=== PATIENT | male | born 1965 | race African-American/Black ===

== ENCOUNTER 2024-04-29 12:08 | Emergency (ER) | payer MEDICAID ==
[~2024-04-29] VITALS: Ht 180.3 cm; Wt 118.0 kg
[2024-04-29 12:11] VITALS: O2SAT 98
[2024-04-29] MEDS: KETOROLAC 30MG/ML VIAL IV STA (12:38)
[2024-04-29] MEDS: SODIUM CHLORIDE 0.9% 1,000 ML IV ONE (12:40)
[2024-04-29] MEDS: HYDROMORPHONE HCL/PF 2MG/ML CPJ IV ONE (12:44)
[2024-04-29 12:52] LABS: BASOPHILS % 0.5 % (0.0-2.0); EOSINOPHILS % 0.6 % (0.0-5.0); HEMATOCRIT. 40.2 % (42.0-52.0); LYMPHOCYTES % 20.9 % (20.0-50.0); MEAN CORPUSCULAR HGB CONC 34.8 g/dL (31.0-37.0); MEAN CORPUSCULAR VOLUME 80.6 fL (80.0-94.0); MEAN PLATELET VOLUME 6.7 fl (7.4-10.4); MONOCYTES % 6.3 % (2.0-8.0); NEUTROPHILS % 71.7 % (40.0-76.0); PLATELET 549 x1000/uL (130-400); RED BLOOD CELL COUNT 4.99 mill/uL (4.7-6.1); RED CELL DISTRIBUTION WIDTH 13.2 % (11.6-14.6); WHITE BLOOD COUNT 9.8 x1000/uL (4.5-11.0)
[2024-04-29 12:54] LABS: CHLORIDE 104 mEq/L (98-107); POTASSIUM 3.9 mEq/L (3.5-5.1); SODIUM 139 mEq/L (136-145)
[2024-04-29 12:55] LABS: CARBON DIOXIDE 29 mEq/L (21-32)
[2024-04-29 12:56] LABS: CALCIUM 9.1 mg/dL (8.7-10.4)
[2024-04-29 13:00] LABS: GLUCOSE 136 mg/dL (70-105)
[2024-04-29 13:01] LABS: UREA NITROGEN BLOOD 10 mg/dL (9-23)
[2024-04-29 13:15] LABS: ETHANOL BLOOD < 10 mg/dL (<10)
[2024-04-29 13:20] LABS: INR 0.9; PROTHROMBIN TIME 10.6 sec (9.6-11.0)
[2024-04-29 16:52] VITALS: BP 132/80; PULSE 88; RESP 30; TEMP 98.2
[2024-04-29 18:30] LABS: CLARITY URINE CLEAR (CLEAR); COLOR URINE DARK YELLOW (YELLOW); GLUCOSE URINE NEGATIVE (NEGATIVE); KETONES URINE TRACE (NEGATIVE); LEUKOCYTE ESTERASE URINE TRACE (NEGATIVE); NITRITE URINE NEGATIVE (NEGATIVE); OCCULT BLOOD URINE NEGATIVE (NEGATIVE); PH URINE 5.5 (4.5-8.0); PROTEIN URINE 1+ (NEGATIVE); SPECIFIC GRAVITY URINE 1.023 (1.005-1.030)
[2024-04-29 18:42] LABS: *AMPHETAMINES SCREEN URINE NEGATIVE (NEGATIVE)
[2024-04-29 18:43] LABS: *BARBITURATES SCREEN URINE NEGATIVE (NEGATIVE); *BENZODIAZEPINES SCREEN URINE NEGATIVE (NEGATIVE); *COCAINE SCREEN URINE PRESUMPTIVE POSITIVE (NEGATIVE); CANNABINOID URINE SCREEN PRESUMPTIVE POSITIVE (NEGATIVE); ECSTASY MDMA SCREEN URINE NEGATIVE (NEGATIVE); METHADONE URINE SCREEN NEGATIVE (NEGATIVE); OPIATES URINE SCREEN PRESUMPTIVE POSITIVE (NEGATIVE); PHENCYCLIDINE URINE SCREEN NEGATIVE (NEGATIVE)
[2024-04-29 19:10] LABS: BACTERIA URINE 2+; RBC URINE NONE SEEN /hpf (0-2); SQUAMOUS EPITHELIAL CELL URINE RARE /lpf (RARE/1+); WBC URINE 0-2 /hpf (0-2)
== END 2024-04-29 18:47 | disposition left against medical advice (07) ==
LOC: ER 12:19
DX: R10.9 Unspecified abdominal pain (principal)
CPT/HCPCS: 80305; 80048; 81003; 80320; 83690; 85025; 85610; 36415; 74176; 96361; 96374; 96375; 99285; J1885; J1170; J7030; Z7610 ×3; G0480

== ENCOUNTER 2024-05-02 07:26 | Inpatient (IN) | payer MEDICAID ==
[2024-05-02] VITALS (25 sets, daily range): BP systolic 141–175; BP diastolic 84–146; PULSE 99–120; RESP 15–34; TEMP 98.8–100; O2SAT 97
[~2024-05-02] VITALS: Ht 177.8 cm; Wt 124.3 kg
[2024-05-02] MEDS: ALBUTEROL (0.083%) 2.5MG/3ML NEB HHN STA (07:56)
[2024-05-02] MEDS: IPRATROPIUM BROMIDE (0.02%) 0.5MG/2.5ML NEB HHN STA (07:56)
[2024-05-02 08:09] LABS: CHLORIDE 97 mEq/L (98-107); POTASSIUM 4.1 mEq/L (3.5-5.1); SODIUM 133 mEq/L (136-145)
[2024-05-02 08:10] LABS: CARBON DIOXIDE 26 mEq/L (21-32)
[2024-05-02 08:11] LABS: CALCIUM 8.8 mg/dL (8.7-10.4)
[2024-05-02 08:13] LABS: BG BASE EXCESS 1.9 mmol/L (-2.0-2.0); BG CARBOXYHEMOGLOBIN 0.8 % (0.5-1.5); BG DEOXYHEMOGLOBIN 13.8 % (0.0-5.0); BG FRACTION INSPIRED OXYGEN 36; BG HCO3 ACT 26.3 mmol/L (22.0-26.0); BG METHEMOGLOBIN 0.5 % (0.0-1.5); BG OXYHEMOGLOBIN 84.9 % (94.0-97.0); BG PCO2 40.1 mmHg (35.0-45.0); BG PH 7.434 (7.350-7.450); BG PO2 50.6 mmHg (75.0-100.0); BG SAMPLE SITE RIGHT BRACHIAL; BG TOTAL HEMOGLOBIN 15.5 g/dL (12.0-18.0); BG VENT MODE NASAL CANNULA
[2024-05-02 08:14] LABS: HEMATOCRIT. 41.8 % (42.0-52.0); HEMOGLOBIN. 14.4 g/dL (14.0-18.0); MEAN CORPUSCULAR HEMOGLOBIN 27.4 pg (28.0-32.0); MEAN CORPUSCULAR HGB CONC 34.5 g/dL (31.0-37.0); MEAN CORPUSCULAR VOLUME 79.3 fL (80.0-94.0); MEAN PLATELET VOLUME 6.8 fl (7.4-10.4); PLATELET 525 x1000/uL (130-400); RED BLOOD CELL COUNT 5.27 mill/uL (4.7-6.1); RED CELL DISTRIBUTION WIDTH 13.7 % (11.6-14.6); WHITE BLOOD COUNT 32.8 x1000/uL (4.5-11.0)
[2024-05-02 08:15] LABS: CREATININE 1.3 mg/dL (0.6-1.3); GLUCOSE 132 mg/dL (70-105)
[2024-05-02 08:15] LABS: DIFFERENTIAL COMMENT 1
[2024-05-02 08:16] LABS: UREA NITROGEN BLOOD 24 mg/dL (9-23)
[2024-05-02 08:17] LABS: ALANINE AMINOTRANSFERASE 21 IU/L (10-49); ALBUMIN 4.3 g/dL (3.2-4.8); ASPARTATE AMINOTRANSFERASE 26 IU/L (<34)
[2024-05-02 08:18] LABS: BILIRUBIN DIRECT 0.6 mg/dL (<=3.0); BILIRUBIN TOTAL 1.3 mg/dL (0.1-1.0); PROTEIN TOTAL 7.2 g/dL (6.0-8.3)
[2024-05-02 08:58] LABS: TROPONIN I HIGH SENSITIVITY 85 ng/L (3.0-53)
[2024-05-02 09:16] LABS: CLARITY URINE CLOUDY (CLEAR); COLOR URINE ORANGE (YELLOW); GLUCOSE URINE NEGATIVE (NEGATIVE); KETONES URINE TRACE (NEGATIVE); LEUKOCYTE ESTERASE URINE TRACE (NEGATIVE); NITRITE URINE NEGATIVE (NEGATIVE); OCCULT BLOOD URINE 2+ (NEGATIVE); PH URINE 5.5 (4.5-8.0); PROTEIN URINE 3+ (NEGATIVE); SPECIFIC GRAVITY URINE 1.022 (1.005-1.030)
[2024-05-02 09:33] LABS: RBC URINE NONE SEEN /hpf (0-2)
[2024-05-02 09:34] LABS: BACTERIA URINE 2+; SQUAMOUS EPITHELIAL CELL URINE NONE SEEN /lpf (RARE/1+); YEAST URINE NONE SEEN
[2024-05-02 10:46] LABS: MICROCYTOSIS 1+; PLATELET ESTIMATE INCREASED
[2024-05-02] MEDS: LORAZEPAM 2MG/ML INJ IV ONE ×2 (10:59→11:49)
[2024-05-02] MEDS: IOHEXOL-350 100 ML BOTTLE ONE (11:51)
[2024-05-02] MEDS: LIDOCAINE HCL/EPINEPHRINE 1%-EPI 1:100,000 20 ML VIAL INFIL ONE (11:51)
[2024-05-02] MEDS: MORPHINE SULFATE 4 MG/ML INJ (FOR IV/IM USE) IV ONE (12:39)
[2024-05-02] MEDS: PIPERACILLIN/TAZO 3.375G/50ML 50 ML IV STA (13:13)
[2024-05-02] MEDS ORDERED: VANCOMYCIN 1,250 MG in DEXT 5% WATER 250 ML IV SCH (13:15)
[2024-05-02] MEDS ORDERED: MORPHINE SULFATE 4 MG/ML INJ (FOR IV/IM USE) IM ONE (13:30)
[2024-05-02] MEDS: MORPHINE SULFATE 4 MG/ML INJ (FOR IV/IM USE) IV NR (13:34)
[2024-05-02] MEDS: VANCOMYCIN 1.25GM PMX (XELLIA) 250 ML IV NR (15:27)
[2024-05-02] MEDS ORDERED: NALOXONE HCL 0.4MG/ML VIAL IV PRN (15:45)
[2024-05-02] MEDS: HYDROCODONE/ACETAMINOPHEN 5/325MG TABLET PO PRN (15:47)
[2024-05-02] MEDS ORDERED: DOXYCYCLINE HYCLATE 100 MG/VIAL IV SCH (16:00)
[2024-05-02] MEDS ORDERED: IPRATROPIUM BROMIDE (0.02%) 0.5MG/2.5ML NEB HHN PRN (18:30)
[2024-05-02] MEDS: METHYLPREDNISOLONE SOD SUCC 125MG/2ML (ACT-O-VIAL) IV NR (19:37)
[2024-05-02] MEDS: DOXYCYCLINE 100MG/100ML 100 ML IV SCH (19:38)
[2024-05-02] MEDS ORDERED: CEFTRIAXONE 1GM/50ML 50 ML IV SCH (21:00)
[2024-05-02 21:24] LABS: CREATINE KINASE MB FRACTION 2.8 ng/mL (0.5-3.6); LACTATE DEHYDROGENASE 184 IU/L (120-246); TROPONIN I HIGH SENSITIVITY 24 ng/L (3.0-53)
[2024-05-02 21:25] LABS: CREATINE KINASE 263 IU/L (46-171)
[2024-05-02] MEDS: MORPHINE SULFATE 2 MG/ML CPJ (NOT FOR IM USE) IV NR (21:27)
[2024-05-02] MEDS: HYDRALAZINE 20MG/ML VIAL IV PRN (21:27)
[2024-05-02] MEDS: ONDANSETRON HCL 4MG/2ML INJ IV PRN (21:27)
[2024-05-02 21:33] LABS: ETHANOL BLOOD < 10 mg/dL (<10)
[2024-05-02] MEDS: CEFTRIAXONE 1GM/50ML 50 ML IV SCH (22:11)
[2024-05-03] VITALS (86 sets, daily range): BP systolic 119–175; BP diastolic 79–141; PULSE 90–107; RESP 14–36; TEMP 98.1–99.1
[2024-05-03 00:58] LABS: CREATINE KINASE MB FRACTION 3.4 ng/mL (0.5-3.6)
[2024-05-03 01:16] LABS: *AMPHETAMINES SCREEN URINE NEGATIVE (NEGATIVE)
[2024-05-03 01:17] LABS: *BARBITURATES SCREEN URINE NEGATIVE (NEGATIVE); *BENZODIAZEPINES SCREEN URINE NEGATIVE (NEGATIVE); *COCAINE SCREEN URINE NEGATIVE (NEGATIVE); CANNABINOID URINE SCREEN PRESUMPTIVE POSITIVE (NEGATIVE); ECSTASY MDMA SCREEN URINE NEGATIVE (NEGATIVE); METHADONE URINE SCREEN NEGATIVE (NEGATIVE); OPIATES URINE SCREEN PRESUMPTIVE POSITIVE (NEGATIVE); PHENCYCLIDINE URINE SCREEN NEGATIVE (NEGATIVE)
[2024-05-03] MEDS: CLONIDINE 0.1MG TABLET PO PRN (01:34)
[2024-05-03 05:09] LABS: HEMATOCRIT. 41.4 % (42.0-52.0); HEMOGLOBIN. 14.1 g/dL (14.0-18.0); MEAN CORPUSCULAR HEMOGLOBIN 27.6 pg (28.0-32.0); MEAN CORPUSCULAR VOLUME 81.1 fL (80.0-94.0); MEAN PLATELET VOLUME 6.8 fl (7.4-10.4); PLATELET 529 x1000/uL (130-400); RED BLOOD CELL COUNT 5.11 mill/uL (4.7-6.1); RED CELL DISTRIBUTION WIDTH 13.7 % (11.6-14.6); WHITE BLOOD COUNT 27.4 x1000/uL (4.5-11.0)
[2024-05-03 05:10] LABS: DIFFERENTIAL COMMENT 1
[2024-05-03 05:29] LABS: CHLORIDE 98 mEq/L (98-107); POTASSIUM 4.5 mEq/L (3.5-5.1); SODIUM 135 mEq/L (136-145)
[2024-05-03 05:30] LABS: CALCIUM 9.1 mg/dL (8.7-10.4); CARBON DIOXIDE 29 mEq/L (21-32)
[2024-05-03 05:32] LABS: CREATINE KINASE MB FRACTION 3.7 ng/mL (0.5-3.6)
[2024-05-03 05:33] LABS: TROPONIN I HIGH SENSITIVITY 7 ng/L (3.0-53)
[2024-05-03 05:34] LABS: CREATINE KINASE 252 IU/L (46-171)
[2024-05-03 05:35] LABS: GLUCOSE 184 mg/dL (70-105); UREA NITROGEN BLOOD 23 mg/dL (9-23)
[2024-05-03 05:37] LABS: PHOSPHORUS 4.6 mg/dL (2.5-4.9)
[2024-05-03] MEDS: DOXYCYCLINE 100MG/100ML 100 ML IV SCH (06:02)
[2024-05-03 06:07] LABS: ATYPICAL LYMPHOCYTES 1; PLATELET ESTIMATE SLIGHTLY INCREASED; TARGET CELLS 2+; TEAR DROP CELLS 2+
[2024-05-03] MEDS ORDERED: LORAZEPAM 4MG/ML INJ IV ONE (08:45)
[2024-05-03] MEDS: LORAZEPAM 2MG/ML INJ IV NR (08:47)
[2024-05-03] MEDS: LIDOCAINE HCL/EPINEPHRINE 1%-EPI 1:100,000 20 ML VIAL INFIL NR (08:54)
[2024-05-03] MEDS: LORAZEPAM 2MG/ML INJ IV PRN (09:09)
[2024-05-03] MEDS: AMLODIPINE 10MG TABLET PO SCH (10:01)
[2024-05-03 14:57] LABS: T4 FREE 1.48 ng/dL (0.89-1.76); THYROID STIMULATING HORMONE 0.47 uIU/mL (0.55-4.78)
[2024-05-04] VITALS (46 sets, daily range): BP systolic 128–163; BP diastolic 63–113; PULSE 92–108; RESP 17–35; TEMP 98.2–99.5
[2024-05-04 05:49] LABS: HEMATOCRIT. 35.5 % (42.0-52.0); HEMOGLOBIN. 11.9 g/dL (14.0-18.0); MEAN CORPUSCULAR HGB CONC 33.6 g/dL (31.0-37.0); MEAN CORPUSCULAR VOLUME 80.5 fL (80.0-94.0); MEAN PLATELET VOLUME 6.9 fl (7.4-10.4); PLATELET 507 x1000/uL (130-400); RED BLOOD CELL COUNT 4.42 mill/uL (4.7-6.1); RED CELL DISTRIBUTION WIDTH 13.7 % (11.6-14.6); WHITE BLOOD COUNT 27.4 x1000/uL (4.5-11.0)
[2024-05-04 05:50] LABS: DIFFERENTIAL COMMENT 1
[2024-05-04 05:58] LABS: CALCIUM 8.6 mg/dL (8.7-10.4); CARBON DIOXIDE 30 mEq/L (21-32); CHLORIDE 97 mEq/L (98-107); POTASSIUM 4.1 mEq/L (3.5-5.1); SODIUM 135 mEq/L (136-145)
[2024-05-04 06:03] LABS: CREATININE 0.7 mg/dL (0.6-1.3)
[2024-05-04 06:04] LABS: GLUCOSE 129 mg/dL (70-105); UREA NITROGEN BLOOD 23 mg/dL (9-23)
[2024-05-04 06:21] LABS: PLATELET ESTIMATE SLIGHTLY INCREASED
[2024-05-04 06:22] LABS: TARGET CELLS 2+; TEAR DROP CELLS 1+
[2024-05-04] MEDS: DOCUSATE SODIUM 100MG CAPSULE PO SCH (08:43)
[2024-05-04] MEDS: POLYETHYLENE GLYCOL 3350 (17GM) 1 DOSE PACK PO NR (08:43)
[2024-05-04] MEDS ORDERED: POLYETHYLENE GLYCOL 3350 (17GM) 1 DOSE PACK PO PRN (08:45)
[2024-05-04] MEDS: HYDROCODONE/ACETAMINOPHEN 10/325MG TABLET PO PRN (18:03)
[2024-05-04] MEDS: FAMOTIDINE 20MG TABLET PO SCH (21:31)
[2024-05-05] VITALS (30 sets, daily range): BP systolic 107–150; BP diastolic 68–104; PULSE 91–109; RESP 15–40; TEMP 98.1–102.9; O2SAT 93
[2024-05-05 06:16] LABS: HEMATOCRIT 37.6 % (42.0-52.0); MEAN CORPUSCULAR HEMOGLOBIN 27.4 pg (28.0-32.0); MEAN CORPUSCULAR HGB CONC 34.5 g/dL (31.0-37.0); MEAN CORPUSCULAR VOLUME 79.4 fL (80.0-94.0); PLATELET 541 x1000/uL (130-400); RED BLOOD CELL COUNT 4.73 mill/uL (4.7-6.1); WHITE BLOOD COUNT 25.4 x1000/uL (4.5-11.0)
[2024-05-05 06:34] LABS: CARBON DIOXIDE 32 mEq/L (21-32); CHLORIDE 97 mEq/L (98-107); SODIUM 135 mEq/L (136-145)
[2024-05-05 06:35] LABS: CALCIUM 9.6 mg/dL (8.7-10.4)
[2024-05-05 06:40] LABS: CREATININE 0.7 mg/dL (0.6-1.3); GLUCOSE 104 mg/dL (70-105); UREA NITROGEN BLOOD 16 mg/dL (9-23)
[2024-05-05] MEDS: QUETIAPINE FUMARATE 50MG TABLET PO SCH (10:48)
[2024-05-05] MEDS: IPRATROPIUM/ALBUTEROL 0.5-3(2.5)MG/3ML NEB HHN PRN (20:39)
[2024-05-06] VITALS (17 sets, daily range): BP systolic 120–158; BP diastolic 61–96; PULSE 91–109; RESP 21–33; TEMP 98.7–100.4
[2024-05-06 06:31] LABS: HEMATOCRIT 36.8 % (42.0-52.0); HEMOGLOBIN 12.8 g/dL (14.0-18.0); MEAN CORPUSCULAR HEMOGLOBIN 27.4 pg (28.0-32.0); MEAN CORPUSCULAR HGB CONC 34.8 g/dL (31.0-37.0); MEAN CORPUSCULAR VOLUME 78.6 fL (80.0-94.0); PLATELET 622 x1000/uL (130-400); RED BLOOD CELL COUNT 4.68 mill/uL (4.7-6.1); RED CELL DISTRIBUTION WIDTH 13.5 % (11.6-14.6); WHITE BLOOD COUNT 30.5 x1000/uL (4.5-11.0)
[2024-05-06 06:39] LABS: CALCIUM 8.7 mg/dL (8.7-10.4); CARBON DIOXIDE 30 mEq/L (21-32); CHLORIDE 96 mEq/L (98-107); POTASSIUM 4.1 mEq/L (3.5-5.1); SODIUM 134 mEq/L (136-145)
[2024-05-06 06:43] LABS: CREATININE 0.7 mg/dL (0.6-1.3)
[2024-05-06 06:44] LABS: GLUCOSE 108 mg/dL (70-105)
[2024-05-06 06:45] LABS: UREA NITROGEN BLOOD 13 mg/dL (9-23)
[2024-05-06] MEDS: PIPERACILLIN/TAZO 3.375G/50ML 50 ML IV SCH (08:21)
[2024-05-06] MEDS ORDERED: QUETIAPINE FUMARATE 25MG TABLET PO SCH (09:00)
[2024-05-06 16:22] LABS: SODIUM URINE RANDOM 15 mEq/L
[2024-05-06 16:52] LABS: OSMOLALITY URINE 615 mOsm/kg (500-850)
[2024-05-06] MEDS: ACETAMINOPHEN 325MG TABLET PO PRN (17:11)
[2024-05-06] MEDS ORDERED: ACETAMINOPHEN 325MG TABLET PO PRN (22:00)
[2024-05-07] VITALS: BP 147/96; PULSE 104; RESP 29; TEMP 99.3
[2024-05-07 04:00] VITALS: BP 131/82; PULSE 100; RESP 26; TEMP 98.5
[2024-05-07 07:15] LABS: CHLORIDE 94 mEq/L (98-107); POTASSIUM 3.7 mEq/L (3.5-5.1); SODIUM 133 mEq/L (136-145)
[2024-05-07 07:16] LABS: CALCIUM 9.8 mg/dL (8.7-10.4); CARBON DIOXIDE 30 mEq/L (21-32)
[2024-05-07 07:19] LABS: HEMATOCRIT. 38.5 % (42.0-52.0); HEMOGLOBIN. 12.9 g/dL (14.0-18.0); MEAN CORPUSCULAR HEMOGLOBIN 26.9 pg (28.0-32.0); MEAN CORPUSCULAR HGB CONC 33.6 g/dL (31.0-37.0); MEAN CORPUSCULAR VOLUME 80.2 fL (80.0-94.0); MEAN PLATELET VOLUME 7.1 fl (7.4-10.4); PLATELET 627 x1000/uL (130-400); RED CELL DISTRIBUTION WIDTH 13.7 % (11.6-14.6); WHITE BLOOD COUNT 30.2 x1000/uL (4.5-11.0)
[2024-05-07 07:21] LABS: CREATININE 0.7 mg/dL (0.6-1.3); GLUCOSE 106 mg/dL (70-105); UREA NITROGEN BLOOD 14 mg/dL (9-23)
[2024-05-07 07:23] LABS: ALANINE AMINOTRANSFERASE 76 IU/L (10-49); ALBUMIN 3.9 g/dL (3.2-4.8); ASPARTATE AMINOTRANSFERASE 54 IU/L (<34); BILIRUBIN TOTAL 0.4 mg/dL (0.1-1.0)
[2024-05-07 07:37] LABS: DIFFERENTIAL COMMENT 1
[2024-05-07 08:00] VITALS: BP 106/88; PULSE 97; RESP 22; TEMP 98.5
[2024-05-07 10:20] LABS: PLATELET ESTIMATE INCREASED
[2024-05-07] MEDS: VANCOMYCIN 2,000 MG in DEXT 5% WATER 500 ML IV SCH (11:30)
[2024-05-07] MEDS: LACTATED RINGERS 1,000 ML IV ONE (11:51)
[2024-05-07 12:00] VITALS: BP 153/89; PULSE 98; RESP 26; TEMP 98.9
[2024-05-07] MEDS: LACTULOSE 20G/30ML UDC PO NR (13:51)
[2024-05-07 17:00] VITALS: BP 153/90; PULSE 104; RESP 32; TEMP 101.5
[2024-05-07 20:00] VITALS: BP 142/94; PULSE 102; RESP 27; TEMP 99
[2024-05-07] MEDS ORDERED: BISACODYL 10MG SUPP PR PRN (21:00)
[2024-05-07] MEDS ORDERED: DIPHENHYDRAMINE 25MG CAPSULE PO PRN (21:00)
[2024-05-07] MEDS: VANCOMYCIN 1GM/200ML PMX (BAXTER) IV SCH (21:49)
[2024-05-07] MEDS: DOCUSATE SODIUM 100MG CAPSULE PO SCH (21:50)
[2024-05-07] MEDS: DEXT 5%/0.45% NACL 1000ML 1,000 ML IV SCH (21:55)
[2024-05-07] MEDS: DILTIAZEM HCL 60MG TABLET PO SCH (21:56)
[2024-05-08] VITALS (44 sets, daily range): BP systolic 90–165; BP diastolic 63–117; PULSE 90–124; RESP 12–37; TEMP 98.9–100.4
[2024-05-08 06:34] LABS: BASOPHILS % 0.4 % (0.0-2.0); DIFFERENTIAL COMMENT 0; EOSINOPHILS % 0.3 % (0.0-5.0); HEMOGLOBIN. 11.7 g/dL (14.0-18.0); LYMPHOCYTES % 8.3 % (20.0-50.0); MEAN CORPUSCULAR HEMOGLOBIN 26.8 pg (28.0-32.0); MEAN CORPUSCULAR HGB CONC 33.6 g/dL (31.0-37.0); MEAN CORPUSCULAR VOLUME 79.8 fL (80.0-94.0); MEAN PLATELET VOLUME 6.9 fl (7.4-10.4); MONOCYTES % 9.8 % (2.0-8.0); NEUTROPHILS % 81.2 % (40.0-76.0); PLATELET 700 x1000/uL (130-400); RED BLOOD CELL COUNT 4.38 mill/uL (4.7-6.1); RED CELL DISTRIBUTION WIDTH 13.6 % (11.6-14.6); WHITE BLOOD COUNT 26.2 x1000/uL (4.5-11.0)
[2024-05-08 06:40] LABS: CALCIUM 8.5 mg/dL (8.7-10.4); CARBON DIOXIDE 29 mEq/L (21-32); CHLORIDE 97 mEq/L (98-107); POTASSIUM 3.9 mEq/L (3.5-5.1); SODIUM 134 mEq/L (136-145)
[2024-05-08 06:45] LABS: CREATININE 0.8 mg/dL (0.6-1.3)
[2024-05-08 06:46] LABS: GLUCOSE 127 mg/dL (70-105); UREA NITROGEN BLOOD 12 mg/dL (9-23)
[2024-05-08 06:49] LABS: INR 1.1; PROTHROMBIN TIME 11.9 sec (9.6-11.0)
[2024-05-08] MEDS: BLOOD SUGAR DIAGNOSTIC STRIP TEST ONE (08:00)
[2024-05-08] MEDS ORDERED: BUPIVACAINE HCL/PF 0.5% (5MG/ML) 10ML ONE (10:11)
[2024-05-08] MEDS ORDERED: TETRACAINE/BENZOCAINE/BUTAMBEN 20 GM SPRAY MM ONE (10:14)
[2024-05-08] MEDS ORDERED: SUCCINYLCHOLINE CHLORIDE 200MG/10ML IV ONE (10:17)
[2024-05-08] MEDS ORDERED: ROCURONIUM BROMIDE 10MG/ML VIAL 5ML IV ONE ×4 (10:17→14:33)
[2024-05-08] MEDS ORDERED: LIDOCAINE HCL 1% 10 MG/ML 10ML VIAL ONE (10:17)
[2024-05-08] MEDS ORDERED: FENTANYL CITRATE/PF 50MCG/ML 2ML VIAL ONE ×2 (10:18→14:02)
[2024-05-08] MEDS ORDERED: MIDAZOLAM HCL 2 MG/2 ML VIAL ONE (10:18)
[2024-05-08] MEDS ORDERED: PROPOFOL 200MG/20ML VIAL IV ONE (10:18)
[2024-05-08] MEDS ORDERED: POLYMYXIN B SULFATE 500000 UNITS/VIAL ONE ×2 (10:32→12:57)
[2024-05-08] MEDS ORDERED: ONDANSETRON HCL 4MG/2ML INJ ONE (10:58)
[2024-05-08] MEDS ORDERED: EPHEDRINE SULFATE 50MG/ML VIAL ONE (10:58)
[2024-05-08] MEDS ORDERED: DEXAMETHASONE 4MG/ML 1ML VIAL ONE (10:58)
[2024-05-08] MEDS ORDERED: METOCLOPRAMIDE HCL 10MG/2ML VIAL ONE (10:58)
[2024-05-08] MEDS ORDERED: HYDROMORPHONE HCL/PF 2MG/ML CPJ ONE (11:38)
[2024-05-08] MEDS ORDERED: ALBUMIN HUMAN 12.5G/250ML (5%) IV ONE (12:43)
[2024-05-08 12:56] LABS: HEMATOCRIT 35.2 % (42.0-52.0)
[2024-05-08] MEDS ORDERED: GLYCOPYRROLATE 0.2 MG/ML 2ML VIAL ONE ×2 (13:06→13:26)
[2024-05-08] MEDS ORDERED: NEOSTIGMINE METHYLSULFATE 1MG/ML 10 ML VIAL ONE (13:06)
[2024-05-08] MEDS: VANCOMYCIN 1GM/200ML PMX (BAXTER) IV SCH (14:00)
[2024-05-08] MEDS ORDERED: ACETAMINOPHEN 325MG TABLET PO PRN (14:45)
[2024-05-08] MEDS ORDERED: CEFAZOLIN 1000MG PREMIX 50 ML IV SCH (14:45)
[2024-05-08] MEDS ORDERED: SODIUM CHLORIDE 0.9% 500 ML IV PRN (14:45)
[2024-05-08] MEDS ORDERED: ALBUMIN HUMAN 12.5G/250ML (5%) IV PRN (14:45)
[2024-05-08] MEDS: MAGNESIUM HYDROXIDE 400MG/5ML 30ML UDC PO SCH (15:00)
[2024-05-08 15:24] LABS: BG BASE EXCESS -1.5 mmol/L (-2.0-2.0); BG CARBOXYHEMOGLOBIN 0.5 % (0.5-1.5); BG DEOXYHEMOGLOBIN 3.1 % (0.0-5.0); BG FRACTION INSPIRED OXYGEN 100; BG METHEMOGLOBIN 0.4 % (0.0-1.5); BG OXYGEN SATURATION 96.9 % (92.0-98.5); BG PCO2 62.3 mmHg (35.0-45.0); BG PH 7.255 (7.350-7.450); BG PO2 105.6 mmHg (75.0-100.0); BG SAMPLE SITE ALINE; BG TOTAL HEMOGLOBIN 14.7 g/dL (12.0-18.0); BG VENT MODE VENT - AC
[2024-05-08 15:31] LABS: CALCIUM 8.6 mg/dL (8.7-10.4); CARBON DIOXIDE 29 mEq/L (21-32); CHLORIDE 101 mEq/L (98-107); POTASSIUM 5.3 mEq/L (3.5-5.1); SODIUM 135 mEq/L (136-145)
[2024-05-08 15:35] LABS: GLUCOSE 162 mg/dL (70-105)
[2024-05-08 15:37] LABS: UREA NITROGEN BLOOD 17 mg/dL (9-23)
[2024-05-08 15:38] LABS: PHOSPHORUS 6.1 mg/dL (2.5-4.9)
[2024-05-08] MEDS: PROPOFOL 10MG/ML 100ML 100 ML IV PRN (15:38)
[2024-05-08 15:50] LABS: HEMATOCRIT. 34.6 % (42.0-52.0); HEMOGLOBIN. 11.6 g/dL (14.0-18.0); MEAN CORPUSCULAR HGB CONC 33.7 g/dL (31.0-37.0); MEAN CORPUSCULAR VOLUME 80.1 fL (80.0-94.0); MEAN PLATELET VOLUME 6.8 fl (7.4-10.4); PLATELET 722 x1000/uL (130-400); RED BLOOD CELL COUNT 4.32 mill/uL (4.7-6.1); RED CELL DISTRIBUTION WIDTH 13.7 % (11.6-14.6); WHITE BLOOD COUNT 34.7 x1000/uL (4.5-11.0)
[2024-05-08 15:58] LABS: DIFFERENTIAL COMMENT 1
[2024-05-08 16:04] LABS: CREATININE 1.3 mg/dL (0.6-1.3)
[2024-05-08] MEDS: DEXT 5%/0.45% NACL 1000ML 1,000 ML IV SCH (16:07)
[2024-05-08 16:22] LABS: PLATELET ESTIMATE INCREASED
[2024-05-08 16:28] LABS: BG BASE EXCESS -1.3 mmol/L (-2.0-2.0); BG CARBOXYHEMOGLOBIN 0.3 % (0.5-1.5); BG DEOXYHEMOGLOBIN 6.2 % (0.0-5.0); BG FRACTION INSPIRED OXYGEN 100; BG HCO3 ACT 25.3 mmol/L (22.0-26.0); BG METHEMOGLOBIN 0.4 % (0.0-1.5); BG OXYGEN SATURATION 93.8 % (92.0-98.5); BG OXYHEMOGLOBIN 93.1 % (94.0-97.0); BG PCO2 50.5 mmHg (35.0-45.0); BG PH 7.318 (7.350-7.450); BG PO2 79.7 mmHg (75.0-100.0); BG SAMPLE SITE ALINE; BG TOTAL HEMOGLOBIN 12.6 g/dL (12.0-18.0); BG TOTAL RESPIRATORY RATE 19 b/min; BG VENT MODE VENT - AC
[2024-05-08] MEDS: ALBUMIN HUMAN 25GM/500ML (5%) IV NR (16:38)
[2024-05-08] MEDS: IPRATROPIUM/ALBUTEROL 0.5-3(2.5)MG/3ML NEB HHN SCH (16:50)
[2024-05-08 17:26] LABS: BODY FLUID MONOCYTES 4 %
[2024-05-08 17:32] LABS: BODY FLUID WBC 3763 /cu mm (0-200)
[2024-05-08 17:33] LABS: BODY FLUID RBC 89750 /cu mm (0-2000)
[2024-05-08] MEDS: FENTANYL 2500MCG/250ML PMX 250 ML IV PRN (17:49)
[2024-05-08 18:14] LABS: BG BASE EXCESS -0.1 mmol/L (-2.0-2.0); BG CARBOXYHEMOGLOBIN 0.2 % (0.5-1.5); BG DEOXYHEMOGLOBIN 0.8 % (0.0-5.0); BG FRACTION INSPIRED OXYGEN 100; BG HCO3 ACT 26.7 mmol/L (22.0-26.0); BG METHEMOGLOBIN 0.5 % (0.0-1.5); BG OXYGEN SATURATION 99.2 % (92.0-98.5); BG OXYHEMOGLOBIN 98.5 % (94.0-97.0); BG PCO2 51.9 mmHg (35.0-45.0); BG PH 7.329 (7.350-7.450); BG PO2 246.4 mmHg (75.0-100.0); BG SAMPLE SITE ALINE; BG TOTAL HEMOGLOBIN 14.1 g/dL (12.0-18.0); BG VENT MODE VENT - AC
[2024-05-08 18:45] LABS: HEMATOCRIT 31.3 % (42.0-52.0); HEMATOCRIT. 31.3 % (42.0-52.0); HEMOGLOBIN 10.7 g/dL (14.0-18.0); HEMOGLOBIN. 10.7 g/dL (14.0-18.0); MEAN CORPUSCULAR HEMOGLOBIN 27.3 pg (28.0-32.0); MEAN CORPUSCULAR HGB CONC 34.2 g/dL (31.0-37.0); MEAN CORPUSCULAR VOLUME 79.7 fL (80.0-94.0); PLATELET 680 x1000/uL (130-400); RED BLOOD CELL COUNT 3.93 mill/uL (4.7-6.1); RED CELL DISTRIBUTION WIDTH 13.9 % (11.6-14.6); WHITE BLOOD COUNT 30.1 x1000/uL (4.5-11.0)
[2024-05-08 18:51] LABS: DIFFERENTIAL COMMENT 1
[2024-05-08 18:54] LABS: POTASSIUM 5.2 mEq/L (3.5-5.1)
[2024-05-08 18:55] LABS: CALCIUM 7.5 mg/dL (8.7-10.4)
[2024-05-08 19:06] LABS: CREATININE 1.7 mg/dL (0.6-1.3)
[2024-05-08 19:35] LABS: MICROCYTOSIS 1+; PLATELET ESTIMATE INCREASED
[2024-05-08] MEDS: DOPAMINE 400MG/250ML PREMIX 250 ML IV PRN (20:13)
[2024-05-08] MEDS: MORPHINE SULFATE 2 MG/ML CPJ (NOT FOR IM USE) IV PRN (20:24)
[2024-05-08] MEDS: DOCUSATE SODIUM 100MG CAPSULE PO SCH (21:23)
[2024-05-08 21:26] LABS: BG BASE EXCESS -1.3 mmol/L (-2.0-2.0); BG CARBOXYHEMOGLOBIN 0.1 % (0.5-1.5); BG DEOXYHEMOGLOBIN 1.1 % (0.0-5.0); BG FRACTION INSPIRED OXYGEN 70; BG HCO3 ACT 21.9 mmol/L (22.0-26.0); BG METHEMOGLOBIN 0.4 % (0.0-1.5); BG OXYGEN SATURATION 98.9 % (92.0-98.5); BG OXYHEMOGLOBIN 98.4 % (94.0-97.0); BG PCO2 31.8 mmHg (35.0-45.0); BG PH 7.455 (7.350-7.450); BG PO2 169.7 mmHg (75.0-100.0); BG SAMPLE SITE ALINE; BG TOTAL HEMOGLOBIN 12.1 g/dL (12.0-18.0); BG VENT MODE VENT - AC
[2024-05-09] VITALS (96 sets, daily range): BP systolic 102–152; BP diastolic 60–116; PULSE 87–108; RESP 8–36; TEMP 98.4–99; O2SAT 95–98
[2024-05-09 00:21] LABS: BG BASE EXCESS 0.2 mmol/L (-2.0-2.0); BG CARBOXYHEMOGLOBIN 0.3 % (0.5-1.5); BG DEOXYHEMOGLOBIN 4.7 % (0.0-5.0); BG FRACTION INSPIRED OXYGEN 60; BG HCO3 ACT 25.6 mmol/L (22.0-26.0); BG METHEMOGLOBIN 0.4 % (0.0-1.5); BG OXYGEN SATURATION 95.3 % (92.0-98.5); BG OXYHEMOGLOBIN 94.6 % (94.0-97.0); BG PCO2 44.2 mmHg (35.0-45.0); BG PO2 79.1 mmHg (75.0-100.0); BG SAMPLE SITE ALINE; BG TOTAL HEMOGLOBIN 12.1 g/dL (12.0-18.0); BG VENT MODE VENT - AC
[2024-05-09 01:35] LABS: HEMATOCRIT. 31.3 % (42.0-52.0); HEMOGLOBIN. 10.5 g/dL (14.0-18.0); MEAN CORPUSCULAR HEMOGLOBIN 26.7 pg (28.0-32.0); MEAN CORPUSCULAR HGB CONC 33.6 g/dL (31.0-37.0); MEAN CORPUSCULAR VOLUME 79.6 fL (80.0-94.0); PLATELET 757 x1000/uL (130-400); RED BLOOD CELL COUNT 3.93 mill/uL (4.7-6.1); RED CELL DISTRIBUTION WIDTH 13.8 % (11.6-14.6); WHITE BLOOD COUNT 30.1 x1000/uL (4.5-11.0)
[2024-05-09 01:42] LABS: DIFFERENTIAL COMMENT 1
[2024-05-09 01:43] LABS: POTASSIUM 4.8 mEq/L (3.5-5.1)
[2024-05-09 01:44] LABS: CALCIUM 7.8 mg/dL (8.7-10.4)
[2024-05-09 01:48] LABS: CREATININE 1.6 mg/dL (0.6-1.3)
[2024-05-09 05:48] LABS: HEMATOCRIT. 31.7 % (42.0-52.0); HEMOGLOBIN. 10.5 g/dL (14.0-18.0); MEAN CORPUSCULAR HEMOGLOBIN 26.6 pg (28.0-32.0); MEAN CORPUSCULAR HGB CONC 33.2 g/dL (31.0-37.0); MEAN CORPUSCULAR VOLUME 80.2 fL (80.0-94.0); MEAN PLATELET VOLUME 6.5 fl (7.4-10.4); PLATELET 701 x1000/uL (130-400); RED BLOOD CELL COUNT 3.96 mill/uL (4.7-6.1); RED CELL DISTRIBUTION WIDTH 13.8 % (11.6-14.6); WHITE BLOOD COUNT 27.9 x1000/uL (4.5-11.0)
[2024-05-09 05:51] LABS: CHLORIDE 99 mEq/L (98-107); POTASSIUM 4.5 mEq/L (3.5-5.1); SODIUM 134 mEq/L (136-145)
[2024-05-09 05:52] LABS: CALCIUM 7.9 mg/dL (8.7-10.4); CARBON DIOXIDE 27 mEq/L (21-32)
[2024-05-09 05:57] LABS: CREATININE 1.4 mg/dL (0.6-1.3); GLUCOSE 141 mg/dL (70-105); UREA NITROGEN BLOOD 20 mg/dL (9-23)
[2024-05-09 07:18] LABS: DIFFERENTIAL COMMENT 1
[2024-05-09 07:56] LABS: BG BASE EXCESS 4.5 mmol/L (-2.0-2.0); BG CARBOXYHEMOGLOBIN 0.3 % (0.5-1.5); BG DEOXYHEMOGLOBIN 1.6 % (0.0-5.0); BG FRACTION INSPIRED OXYGEN 60; BG HCO3 ACT 29.4 mmol/L (22.0-26.0); BG METHEMOGLOBIN 0.3 % (0.0-1.5); BG OXYGEN SATURATION 98.4 % (92.0-98.5); BG OXYHEMOGLOBIN 97.8 % (94.0-97.0); BG PH 7.433 (7.350-7.450); BG SAMPLE SITE RIGHT BRACHIAL; BG TOTAL HEMOGLOBIN 11.9 g/dL (12.0-18.0); BG VENT MODE VENT - AC
[2024-05-09 09:12] LABS: BG BASE EXCESS 5.6 mmol/L (-2.0-2.0); BG CARBOXYHEMOGLOBIN 0.3 % (0.5-1.5); BG DEOXYHEMOGLOBIN 4.6 % (0.0-5.0); BG FRACTION INSPIRED OXYGEN 40; BG HCO3 ACT 29.7 mmol/L (22.0-26.0); BG METHEMOGLOBIN 0.3 % (0.0-1.5); BG OXYGEN SATURATION 95.4 % (92.0-98.5); BG OXYHEMOGLOBIN 94.8 % (94.0-97.0); BG PCO2 41.3 mmHg (35.0-45.0); BG PH 7.474 (7.350-7.450); BG PO2 78.6 mmHg (75.0-100.0); BG SAMPLE SITE RIGHT BRACHIAL; BG TOTAL HEMOGLOBIN 11.9 g/dL (12.0-18.0); BG VENT MODE VENT - AC
[2024-05-09] MEDS: ONDANSETRON HCL 4MG/2ML INJ IV PRN (09:53)
[2024-05-09] MEDS: FAMOTIDINE 20MG/2ML VIAL IV SCH (09:53)
[2024-05-09 11:08] LABS: BG BASE EXCESS 6.2 mmol/L (-2.0-2.0); BG CARBOXYHEMOGLOBIN 0.3 % (0.5-1.5); BG DEOXYHEMOGLOBIN 3.5 % (0.0-5.0); BG FRACTION INSPIRED OXYGEN 40; BG METHEMOGLOBIN 0.1 % (0.0-1.5); BG OXYGEN SATURATION 96.5 % (92.0-98.5); BG OXYHEMOGLOBIN 96.1 % (94.0-97.0); BG PCO2 31.2 mmHg (35.0-45.0); BG PH 7.571 (7.350-7.450); BG PO2 81.9 mmHg (75.0-100.0); BG SAMPLE SITE RIGHT BRACHIAL; BG TOTAL HEMOGLOBIN 11.8 g/dL (12.0-18.0); BG VENT MODE VENT - CPAP
[2024-05-09 12:21] LABS: PLATELET ESTIMATE INCREASED
[2024-05-09 13:53] LABS: PLATELET ESTIMATE INCREASED
[2024-05-09] MEDS: MAGNESIUM HYDROXIDE 400MG/5ML 30ML UDC PO SCH (15:06)
[2024-05-09] MEDS: OXYCODONE HCL/ACETAMINOPHEN 5/325MG TABLET PO PRN (15:06)
[2024-05-09] MEDS: ENOXAPARIN 30MG/0.3ML SYR SUBCUT SCH (18:15)
[2024-05-09] MEDS: VANCOMYCIN 750MG PREMIX 150 ML IV SCH (20:08)
[2024-05-10] VITALS (100 sets, daily range): BP systolic 92–145; BP diastolic 48–119; PULSE 88–160; RESP 14–35; TEMP 98–99.5; O2SAT 94–96
[2024-05-10] MEDS: OXYCODONE HCL/ACETAMINOPHEN 5/325MG TABLET PO PRN (02:37)
[2024-05-10 05:33] LABS: BASOPHILS % 0.1 % (0.0-2.0); DIFFERENTIAL COMMENT 0; EOSINOPHILS % 0.3 % (0.0-5.0); HEMATOCRIT. 28.3 % (42.0-52.0); HEMOGLOBIN. 9.7 g/dL (14.0-18.0); LYMPHOCYTES % 9.2 % (20.0-50.0); MEAN CORPUSCULAR HGB CONC 34.1 g/dL (31.0-37.0); MEAN PLATELET VOLUME 6.7 fl (7.4-10.4); MONOCYTES % 9.1 % (2.0-8.0); NEUTROPHILS % 81.3 % (40.0-76.0); PLATELET 726 x1000/uL (130-400); RED BLOOD CELL COUNT 3.59 mill/uL (4.7-6.1); WHITE BLOOD COUNT 21.6 x1000/uL (4.5-11.0)
[2024-05-10 05:36] LABS: CALCIUM 7.9 mg/dL (8.7-10.4); CARBON DIOXIDE 32 mEq/L (21-32); CHLORIDE 100 mEq/L (98-107); POTASSIUM 4.3 mEq/L (3.5-5.1); SODIUM 136 mEq/L (136-145)
[2024-05-10 05:42] LABS: CREATININE 1.3 mg/dL (0.6-1.3); GLUCOSE 132 mg/dL (70-105); UREA NITROGEN BLOOD 18 mg/dL (9-23)
[2024-05-10] MEDS ORDERED: NALOXONE HCL 0.4MG/ML VIAL IV PRN (11:45)
[2024-05-10] MEDS: VANCOMYCIN 750MG/250ML IV SCH (20:42)
[2024-05-11] VITALS (72 sets, daily range): BP systolic 74–166; BP diastolic 42–127; PULSE 87–111; RESP 13–35; TEMP 97.2–98.7; O2SAT 94–97
[2024-05-11 06:10] LABS: BASOPHILS % 0.2 % (0.0-2.0); DIFFERENTIAL COMMENT 0; EOSINOPHILS % 0.5 % (0.0-5.0); HEMATOCRIT. 27.3 % (42.0-52.0); HEMOGLOBIN. 9.3 g/dL (14.0-18.0); LYMPHOCYTES % 10.1 % (20.0-50.0); MEAN CORPUSCULAR HEMOGLOBIN 26.8 pg (28.0-32.0); MEAN CORPUSCULAR HGB CONC 33.9 g/dL (31.0-37.0); MEAN PLATELET VOLUME 6.4 fl (7.4-10.4); MONOCYTES % 9.7 % (2.0-8.0); NEUTROPHILS % 79.5 % (40.0-76.0); PLATELET 818 x1000/uL (130-400); RED BLOOD CELL COUNT 3.46 mill/uL (4.7-6.1); RED CELL DISTRIBUTION WIDTH 13.6 % (11.6-14.6); WHITE BLOOD COUNT 19.5 x1000/uL (4.5-11.0)
[2024-05-11 06:12] LABS: CHLORIDE 101 mEq/L (98-107); POTASSIUM 4.6 mEq/L (3.5-5.1); SODIUM 135 mEq/L (136-145)
[2024-05-11 06:13] LABS: CALCIUM 7.9 mg/dL (8.7-10.4); CARBON DIOXIDE 31 mEq/L (21-32)
[2024-05-11 06:18] LABS: CREATININE 1.4 mg/dL (0.6-1.3); GLUCOSE 105 mg/dL (70-105); UREA NITROGEN BLOOD 15 mg/dL (9-23)
[2024-05-11] MEDS: VANCOMYCIN 750MG/150ML (BAXTER) IV SCH (20:18)
[2024-05-12] VITALS (9 sets, daily range): BP systolic 119–136; BP diastolic 67–92; PULSE 83–96; RESP 17–29; TEMP 98.3–98.8; O2SAT 94–97
[2024-05-12] MEDS: PIPERACILLIN/TAZO 3.375G/50ML 50 ML IV SCH (05:43)
[2024-05-12 05:59] LABS: BASOPHILS % 0.3 % (0.0-2.0); DIFFERENTIAL COMMENT 0; EOSINOPHILS % 0.5 % (0.0-5.0); HEMATOCRIT. 29.1 % (42.0-52.0); HEMOGLOBIN. 9.8 g/dL (14.0-18.0); LYMPHOCYTES % 12.1 % (20.0-50.0); MEAN CORPUSCULAR HEMOGLOBIN 26.5 pg (28.0-32.0); MEAN CORPUSCULAR HGB CONC 33.6 g/dL (31.0-37.0); MEAN CORPUSCULAR VOLUME 78.9 fL (80.0-94.0); MEAN PLATELET VOLUME 6.4 fl (7.4-10.4); MONOCYTES % 9.2 % (2.0-8.0); NEUTROPHILS % 77.9 % (40.0-76.0); PLATELET 853 x1000/uL (130-400); RED BLOOD CELL COUNT 3.69 mill/uL (4.7-6.1); RED CELL DISTRIBUTION WIDTH 13.9 % (11.6-14.6); WHITE BLOOD COUNT 19.9 x1000/uL (4.5-11.0)
[2024-05-12 06:08] LABS: POTASSIUM 4.5 mEq/L (3.5-5.1)
[2024-05-12 06:09] LABS: CALCIUM 8.5 mg/dL (8.7-10.4)
[2024-05-12 06:14] LABS: CREATININE 1.5 mg/dL (0.6-1.3)
[2024-05-13] VITALS (9 sets, daily range): BP systolic 122–155; BP diastolic 72–85; PULSE 89–99; RESP 18–35; TEMP 98.4–99; O2SAT 95–96
[2024-05-13 11:16] LABS: BASOPHILS % 0.9 % (0.0-2.0); EOSINOPHILS % 0.5 % (0.0-5.0); HEMATOCRIT. 28.2 % (42.0-52.0); HEMOGLOBIN. 9.4 g/dL (14.0-18.0); LYMPHOCYTES % 11.5 % (20.0-50.0); MEAN CORPUSCULAR HEMOGLOBIN 26.8 pg (28.0-32.0); MEAN CORPUSCULAR HGB CONC 33.2 g/dL (31.0-37.0); MEAN CORPUSCULAR VOLUME 80.7 fL (80.0-94.0); MEAN PLATELET VOLUME 6.4 fl (7.4-10.4); MONOCYTES % 7.7 % (2.0-8.0); NEUTROPHILS % 79.4 % (40.0-76.0); PLATELET 883 x1000/uL (130-400); RED CELL DISTRIBUTION WIDTH 13.7 % (11.6-14.6); WHITE BLOOD COUNT 16.4 x1000/uL (4.5-11.0)
[2024-05-13 11:33] LABS: POTASSIUM 4.8 mEq/L (3.5-5.1)
[2024-05-13 11:35] LABS: CALCIUM 8.5 mg/dL (8.7-10.4)
[2024-05-13 11:39] LABS: CREATININE 1.5 mg/dL (0.6-1.3)
[2024-05-13] MEDS: OXYCODONE HCL/ACETAMINOPHEN 5/325MG TABLET PO PRN (21:22)
[2024-05-14] VITALS: BP 115/79; PULSE 105; RESP 25; TEMP 98.8
[2024-05-14 04:00] VITALS: BP 121/75; PULSE 87; RESP 23; TEMP 98.4
[2024-05-14 05:09] LABS: POTASSIUM 4.2 mEq/L (3.5-5.1)
[2024-05-14 05:10] LABS: CALCIUM 8.5 mg/dL (8.7-10.4)
[2024-05-14 05:15] LABS: CREATININE 1.6 mg/dL (0.6-1.3)
[2024-05-14 05:19] LABS: BASOPHILS % 0.3 % (0.0-2.0); DIFFERENTIAL COMMENT 0; EOSINOPHILS % 0.5 % (0.0-5.0); HEMOGLOBIN. 9.3 g/dL (14.0-18.0); LYMPHOCYTES % 11.6 % (20.0-50.0); MEAN CORPUSCULAR HEMOGLOBIN 26.4 pg (28.0-32.0); MEAN CORPUSCULAR HGB CONC 33.1 g/dL (31.0-37.0); MEAN CORPUSCULAR VOLUME 79.6 fL (80.0-94.0); MEAN PLATELET VOLUME 6.3 fl (7.4-10.4); MONOCYTES % 7.7 % (2.0-8.0); NEUTROPHILS % 79.9 % (40.0-76.0); PLATELET 928 x1000/uL (130-400); RED BLOOD CELL COUNT 3.52 mill/uL (4.7-6.1); RED CELL DISTRIBUTION WIDTH 13.5 % (11.6-14.6); WHITE BLOOD COUNT 17.6 x1000/uL (4.5-11.0)
[2024-05-14 08:00] VITALS: BP 116/76; PULSE 91; RESP 20; TEMP 98.3
[2024-05-14 12:00] VITALS: BP 131/84; PULSE 86; RESP 25; TEMP 98.4
[2024-05-14 16:00] VITALS: BP 124/74; PULSE 97; RESP 21; TEMP 97.7
[2024-05-14] MEDS: SENNOSIDES/DOCUSATE SOD 8.6/50MG TABLET PO SCH (17:48)
[2024-05-14] MEDS: LACTULOSE 20G/30ML UDC PO NR (17:48)
[2024-05-14 20:00] VITALS: BP 115/63; PULSE 99; RESP 21; TEMP 99.1
[2024-05-15] VITALS: PULSE 92; RESP 20; TEMP 98
[2024-05-15 04:00] VITALS: BP 143/85; PULSE 93; RESP 19; TEMP 98.1
[2024-05-15] MEDS: PIPERACILLIN/TAZO 3.375G/50ML 50 ML IV SCH (05:22)
[2024-05-15 06:37] LABS: CHLORIDE 99 mEq/L (98-107); POTASSIUM 4.4 mEq/L (3.5-5.1); SODIUM 138 mEq/L (136-145)
[2024-05-15 06:38] LABS: CARBON DIOXIDE 29 mEq/L (21-32)
[2024-05-15 06:39] LABS: BASOPHILS % 1.1 % (0.0-2.0); CALCIUM 8.6 mg/dL (8.7-10.4); DIFFERENTIAL COMMENT 0; EOSINOPHILS % 0.8 % (0.0-5.0); HEMATOCRIT. 27.4 % (42.0-52.0); HEMOGLOBIN. 9.3 g/dL (14.0-18.0); LYMPHOCYTES % 11.7 % (20.0-50.0); MEAN CORPUSCULAR HEMOGLOBIN 26.9 pg (28.0-32.0); MEAN CORPUSCULAR HGB CONC 33.7 g/dL (31.0-37.0); MEAN CORPUSCULAR VOLUME 79.8 fL (80.0-94.0); MEAN PLATELET VOLUME 6.2 fl (7.4-10.4); MONOCYTES % 7.5 % (2.0-8.0); NEUTROPHILS % 78.9 % (40.0-76.0); PLATELET 976 x1000/uL (130-400); RED BLOOD CELL COUNT 3.44 mill/uL (4.7-6.1); RED CELL DISTRIBUTION WIDTH 13.6 % (11.6-14.6); WHITE BLOOD COUNT 15.6 x1000/uL (4.5-11.0)
[2024-05-15 06:43] LABS: CREATININE 1.4 mg/dL (0.6-1.3); GLUCOSE 97 mg/dL (70-105)
[2024-05-15 06:44] LABS: UREA NITROGEN BLOOD 14 mg/dL (9-23)
[2024-05-15 06:45] LABS: ALANINE AMINOTRANSFERASE 46 IU/L (10-49); ALBUMIN 3.3 g/dL (3.2-4.8); ASPARTATE AMINOTRANSFERASE 38 IU/L (<34)
[2024-05-15 06:46] LABS: BILIRUBIN TOTAL 0.4 mg/dL (0.1-1.0); PROTEIN TOTAL 6.4 g/dL (6.0-8.3)
[2024-05-15 08:00] VITALS: BP 135/72; PULSE 97; RESP 20; TEMP 98.4
[2024-05-15] MEDS: FAMOTIDINE 20MG TABLET PO SCH (08:30)
[2024-05-15] MEDS ORDERED: DILT240C91 MT (10:21)
[2024-05-15 11:09] VITALS: BP 138/77; PULSE 88; TEMP 98.7; O2SAT 96
== END 2024-05-15 14:30 | disposition home health service (06) | DRG 710 ==
LOC: ER 07:26 → EDBEDREQTM 12:46 → EDBEDREQSVC 12:46 → EDBEDREQ 12:46 → CVICU 17:12 → 3WST 05-06 16:28 → CVICU 05-08 10:19 → 3WST 05-11 23:00
PROVIDERS: ADMIT Internal Medicine; ATTEND Internal Medicine
PROC: 0W9930Z Drainage of Right Pleural Cavity with Drainage Device, Percutaneous Approach (ICD-10-PCS; principal; 2024-05-02)
PROC: 0W9930Z Drainage of Right Pleural Cavity with Drainage Device, Percutaneous Approach (ICD-10-PCS; 2024-05-03)
PROC: 5A1935Z Respiratory Ventilation, Less than 24 Consecutive Hours (ICD-10-PCS; 2024-05-08)
PROC: 0BH17EZ Insertion of Endotracheal Airway into Trachea, Via Natural or Artificial Opening (ICD-10-PCS; 2024-05-08)
PROC: 0BNK0ZZ Release Right Lung, Open Approach (ICD-10-PCS; 2024-05-08)
PROC: 0W9900Z Drainage of Right Pleural Cavity with Drainage Device, Open Approach (ICD-10-PCS; 2024-05-08)
DX: A41.9 Sepsis, unspecified organism (principal); J96.01 Acute respiratory failure with hypoxia; J86.9 Pyothorax without fistula; I21.A1 Myocardial infarction type 2; J90 Pleural effusion, not elsewhere classified; J18.9 Pneumonia, unspecified organism; N17.9 Acute kidney failure, unspecified; E87.1 Hypo-osmolality and hyponatremia; R16.0 Hepatomegaly, not elsewhere classified; F12.90 Cannabis use, unspecified, uncomplicated; F14.90 Cocaine use, unspecified, uncomplicated; F17.210 Nicotine dependence, cigarettes, uncomplicated; N39.0 Urinary tract infection, site not specified; E66.01 Morbid (severe) obesity due to excess calories; J98.19 Other pulmonary collapse; I10 Essential (primary) hypertension; K59.00 Constipation, unspecified; Z71.51 Drug abuse counseling and surveillance of drug abuser; Z68.39 Body mass index [BMI] 39.0-39.9, adult
CPT/HCPCS: 36415; 36600; 71045; 71046; 71250; 71275; 74018; 80048; 80053; 80076; 80202; 80305; 80320; 81003; 82375; 82550; 82553; 82805; 82962; 83605; 83615; 83735; 83880; 83930; 83935; 84100; 84145; 84300; 84439; 84443; 84478; 84484; 85014; 85018; 85025; 85027; 86850; 86900; 86920; 87070; 87075; 87102; 87116; 88108; 88305; 88312; 93005; 93306; 93970; 93971; 94003; 94640; 97116; 97162; 97166; 97530; 97535; 99291; J0330; J0360; J0696; J1100; J1170; J1265; J1650; J2060; J2250; J2270; J2405; J2543; J2704; J2710; J2765; J2919; J3010; J3370; J3490; J7030; J7060; P9041; Q9967; G0480